=== PATIENT | male | born 1945 | race Caucasian/White ===

== ENCOUNTER 2019-12-17 21:25 | Inpatient (IN) | payer OTHER ==
[~2019-12-17] VITALS: Ht 170.2 cm; Wt 111.4 kg
[2019-12-17 19:30] VITALS: BP 130/86
[~2019-12-17 21:25] MED LIST: ASPIR 8181 MG PO; NITROGLYCERIN0.4 MG SUBLING
[2019-12-17 21:54] LABS: HEMATOCRIT 27.6 % (42.0-52.0); HEMOGLOBIN 8.8 gm/dL (14.0-18.0); MCH 30.3 pg (26.0-34.0); MCHC 31.9 g/dL (28.0-37.0); MCV 95.1 fL (80.0-100.0); PLATELET COUNT 385 thou/uL (150-400); RDW 16.7 % (10.5-14.5); WBC 10.7 thou/uL (4.0-11.0)
[2019-12-17 22:01] LABS: CREATININE 0.8 mg/dL (0.7-1.3); POTASSIUM 3.2 mmol/L (3.5-5.1)
[2019-12-17 22:06] LABS: INR 1.8; PROTIME 18.1 Seconds (9.3-11.4)
[2019-12-17] MEDS ORDERED: WELLBUTRIN 75 M75 M1 PO (22:12)
[2019-12-17] MEDS ORDERED: ARTIFICIAL TEAR1510 OPHTHALMIC (22:12)
[2019-12-17] MEDS ORDERED: REMEDY CALAZIM113 G2 TOP (22:13)
[2019-12-17] MEDS ORDERED: CARVEDILOL25 MG PO (22:14)
[2019-12-17] MEDS ORDERED: CARDIZEM SR 60M60 MG PO (22:16)
[2019-12-17] MEDS ORDERED: DULOXETINE HCL30 MG PO (22:17)
[2019-12-17] MEDS ORDERED: ZETIA10 MG PO (22:18)
[2019-12-17] MEDS ORDERED: LEVEMIR100 UNIT/1 SUBQ (22:19)
[2019-12-17] MEDS ORDERED: PREVACID30 MG PO (22:19)
[2019-12-17] MEDS ORDERED: POLYSACCHARIDE150 MG PO (22:20)
[2019-12-17] MEDS ORDERED: SUPER THERAVIT1 EACH PO (22:20)
[2019-12-17] MEDS ORDERED: EFFER-K 10 MEQ10 ME1 PO (22:21)
[2019-12-17] MEDS ORDERED: PRAVACHOL40 MG PO (22:22)
[2019-12-17] MEDS ORDERED: TRAZODONE HCL50 MG PO (22:22)
[2019-12-17] MEDS ORDERED: COUMADIN 2.5MG2.5 M1 PO (22:23)
[2019-12-17] MEDS ORDERED: COUMADIN 1MG TAB1 M1 PO (22:23)
[2019-12-17] MEDS ORDERED: VENTOLIN HFA INH8 GM INH (22:25)
[2019-12-17] MEDS ORDERED: NITROSTAT0.4 M1 SUBLING (22:27)
[2019-12-17] MEDS ORDERED: CHLORHEXADINE120 M1 TOP (22:28)
[2019-12-17 22:39] LABS: ABSOLUTE NEUTROPHILS 9.3 thou/uL (1.4-8.2)
[2019-12-17 22:40] LABS: ANISOCYTOSIS 1+; POLYCHROMASIA OCCASIONAL
[2019-12-18] VITALS (7 sets, daily range): BP systolic 89–132; BP diastolic 55–92
--- NOTE | 2019-12-18 09:30 | NUR ---
TUBE FEEDING RECOMMENDATIONS: 1) Continue care center TF regimen of Nepro at 45 ml/hr x 24 hrs/day. 2) Continue water flushes as ordered (150 ml q 4 hrs), adjusting as needed per provider discretion given current hyponatremia. 3) RECOMMEND adding Beneprotein modulars BID to increase protein given wounds. Suggest adding 2 packets/day with water flushes. 4) Recommend checking Mag and Phos lytes too as K+ currently low; replace.
--- NOTE | 2019-12-18 13:36 | NUR ---
CLINICAL UPDATE PROVIDED TO ELLIOTT FINK. FOLLOWING TO ASSIST WITH DC PLANNING ONCE MEDICALLY STABLE.
--- NOTE | 2019-12-18 14:46 | 2DMMODE ---
[facility] [place] [address] 2 D/M-MODE ECHOCARDIOGRAM Name: CHRIS SCOTT Room #: 352-P ADM IN M.R.#: [id number] Admission: 12/17/19 Attend Phys: Alfonso Goss MD Discharge: Date of : 47 Report #: [id number] THIS REPORT FOR: cc: Nathan Clarke MD, Christopher B. MD Lammoglia, Francisco J. MD ~ APPROVED REPORT Study performed: 12/18/2019 13:26:17 EXAM: Comprehensive 2D, Doppler, and color-flow Echocardiogram Patient Location: Bedside Room #: [facility] Status: routine BSA: 2.38 HR: 104 bpm BP: 94/68 mmHg Rhythm: Afib, PVC, tachy Other Information Study Quality: Fair/permanent tach Technically limited study due to obesity, lung interference w trach. Indications Short of breath, CHF. Hx: CABG and MV repair (August 2019) Hx: CHF, Afib, HTN, HLP, DM. Echo Enhancing Agent Indication: Endocardial border delineation Agent(s) / Amount(s) Used: Optison 5 cc 2D Dimensions RVDd: 39.44 mm IVSd: 11.44 (7-11mm) LVOT Diam: 21.21 (18-24mm) LVDd: 43.68 mm PWd: 10.56 (7-11mm) LVDs: 32.74 (25-40mm) Aortic Root: 36.84 mm Volumes Left Atrial Volume (Systole) Single Plane 4CH: 88.51 mL Single Plane 2CH: 124.16 mL [facility] [address] [place] [address] 2 D/M-MODE ECHOCARDIOGRAM Name: CHRIS SCOTT Room #: 352-P [facility] IN [facility]#: [id number] Admission: 12/17/19 Attend Phys: Lali Atwood Discharge: Date of : 47 Report #: [id number] ESV Index: 46.00 mL/m2 Aortic Valve AoV Peak Sy.: 2.04 m/s AO Peak Gr.: 16.72 mmHg LVOT Max P.91 mmHg AO Mean Gr.: 8.38 mmHg AO V2 Mean: 1.36 m/s LVOT Max V: 0.85 m/s AO V2 VTI: 39.07 cm FRANCINE Vmax: 1.47 cm2 Pulmonary Valve PV Peak Sy.: 0.84 m/s PV Peak Gr.: 2.80 mmHg Tricuspid Valve TR Peak Sy.: 2.43 m/s RAP Estimate: 15.00 mmHg TR Peak Gr.: 24.00 mmHg PA Pressure: 39.00 mmHg Left Ventricle The left ventricle is normal size. There is global hypokinesis of the left ventricle. Left ventricular systolic function is mildly decreased. LVEF is 45%. This study is not technically sufficient to allow evaluation of the LV diastolic function due to atrial fibrillation. Right Ventricle The right ventricle is normal size. The right ventricular systolic function is normal. Atria Left atrium is moderate to severely dilated. The right atrium size is normal. Aortic Valve Aortic valve is moderately calcified. Trace aortic regurgitation. There is mild valvular aortic stenosis. Calculated aortic valve area is 1.5 cm2 with maximum pressure gradient of 17 mmHg and mean pressure gradient of 8 mmHg. Mitral Valve Mitral valve repair (August 2019). Annulus is calcified. Decreased excursion of leaflets. Peak gradient of 18mmHg. Mean gradient of 8mmHg. Mild mitral regurgitation. Tricuspid Valve The tricuspid valve is normal in structure. Mild tricuspid [facility] [address] [place] [address] 2 D/M-MODE ECHOCARDIOGRAM Name: CHRIS SCOTT Room #: 352-P [facility] IN ..#: [id number] Admission: 12/17/19 Attend Phys: Lali Atwood Discharge: Date of : 47 Report #: [id number] regurgitation. Estimated PAP is 35-40mmHg. Pulmonic Valve Pulmonic valve is not well visualized. Great Vessels The aortic root is normal in size. Ascending aorta is not well visualized. IVC is dilated and collapses <50% with inspiration. Pericardium There is no pericardial effusion. <Conclusion> The left ventricle is normal size. LVEF is 45%. There is global hypokinesis of the left ventricle. Left atrium is moderate to severely dilated. Aortic valve is moderately calcified. Trace aortic regurgitation. There is mild valvular aortic stenosis. Calculated aortic valve area is 1.5 cm2 with maximum pressure gradient of 17 mmHg and mean pressure gradient of 8 mmHg. Mitral valve repair (August 2019). Annulus is calcified. Decreased excursion of leaflets. Peak gradient of 18mmHg. Mean gradient of 8mmHg. Mild mitral regurgitation. The tricuspid valve is normal in structure. Mild tricuspid regurgitation. Estimated PAP is 35-40mmHg. Pulmonic valve is not well visualized. There is no pericardial effusion. <ELECTRONICALLY SIGNED> By: Camilo Gorman MD 12/18/19 1445 1445 1445 Camilo Gorman MD /INF
--- NOTE | 2019-12-18 16:20 | EKG ---
[facility] [place] [address] ELECTROCARDIOGRAM REPORT Name: CHRIS SCOTT Room #: 352- ADM IN M.R.#: [id number] Admission: 12/17/19 Attend Phys: Alfonso Goss MD Discharge: Date of : 47 Report #: [id number] THIS REPORT FOR: cc: Nathan Clarke MD, Christopher B. MD Couchonnal, Luis F. 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: Samra GERMAN : 1945 Requested By: Natalie Cortes Order Number: [id number] MD: Siddharth Low Measurements Intervals Emerson Rate: 95 P: CA: QRS: 23 QRSD: 95 T: 58 QT: 407 QTc: 512 Interpretive Statements Atrial fibrillation Low voltage, extremity leads Nonspecific T abnormalities, lateral leads No previous ECG available for comparison Electronically Signed On 12-18-2019 16:19:54 NEW ORDER CLERK by Siddharth Low [email or web address] <ELECTRONICALLY SIGNED> By: Siddharth Low MD 12/18/19 1619 1424 1424 Siddharth Low MD /EPI
--- NOTE | 2019-12-18 19:53 | NUR ---
Assumed care approx. 0700 this AM. Pt able to respond to medical questions when asked by doctors today, but noted to be very drowsy. Pt remains on vent/trach. Chest tube intact-chest tube placed to suction per verbal order from Dr. Pope. Minimal serous drainage from chest tube. Midline noted to not draw blood-IV team tried to fix the line with no success. Right upper arm peripheral IV was placed per IV team. Family updated at bedside. Family educated on isolation precautions. No acute changes noted. Pt hasn't progressed toward goals yet as medical problems are still to be resolved.
[2019-12-19] VITALS (7 sets, daily range): BP systolic 83–125; BP diastolic 62–110
[2019-12-19 04:00] LABS: ANION GAP < 0 mmol/L (7-16); BUN 31 mg/dL (7-18); CALCIUM 7.9 mg/dL (8.5-10.1); CHLORIDE 90 mmol/L (98-107); CO2 42 mmol/L (21-32); CREATININE 0.9 mg/dL (0.7-1.3); GLUCOSE 120 mg/dL (74-106); POTASSIUM 3.3 mmol/L (3.5-5.1); SODIUM 131 mmol/L (136-145)
[2019-12-19 04:28] LABS: INR 1.6; PROTIME 16.1 Seconds (9.3-11.4)
--- NOTE | 2019-12-19 08:17 | NUR ---
ASSUMED CARE AT 1900. PT TOLERATING VENT, MINIMAL NEED FOR SUCTION OVERNIGHT, LUNGS DIMINISHED R>L. MODERATE DARK, TARRY STOOL IN EVENING. ONLY ABOUT 10 ML OUT OF CHEST TUBE OVERNIGHT. PT BECAME NAUSEATED AFTER A WATER FLUSH WITH MEDICATIONS, ONLY GAVE TWO OVERNIGHT TO REDUCE DISCOMFORT. HELD TUBE FEEDING AT 0500 FOR THORACENTESIS TODAY. SOFT BP'S OVERNIGHT, HELD MIDNIGHT CARDIZEM, BUT HR GRADUALLY HIGHER OVERNIGHT ABOUT 120; GAVE 0600 DOSE WHICH HELPED HR. NO OTHER CONCERNS, WILL CONTINUE TO MONITOR.
--- NOTE | 2019-12-19 11:42 | H ---
[facility] [place] [address] HISTORY AND PHYSICAL Name: CHRIS SCOTT Room #: 352-P ADM IN M.R.#: [id number] Admission: 12/17/19 Attend Phys: Alfonso Goss MD Discharge: Date of : 47 Report #: [id number] THIS REPORT FOR: //name// CC: Nathan Goss DATE OF SERVICE: 12/18/2019 CHIEF COMPLAINT: Shortness of breath. HISTORY OF PRESENT ILLNESS: The patient is a 74-year-old gentleman admitted from [facility] facility for evaluation of a chronic right pleural effusion. His history is quite complicated, but began in early 08/2019 when he underwent multivessel cardiac bypass surgery and mitral valve repair at the [facility] in [place], [place]. Postoperatively, he had complications with respiratory failure, pulmonary edema, congestive heart failure and renal failure. He required prolonged mechanical ventilation and ultimately had a tracheostomy tube placed and PEG tube for nutritional and medication access. He required hemodialysis for a period of time and also had complications of his global weakness, thought possibly related to a central cord syndrome or critical illness myopathy. He medically stabilized and then transferred to [facility] in [facility] where he stayed for quite some length of time. He was unable to wean from the ventilator and had complications. He may have had a brief hospital stay again and then transferred to [facility] facility on 11/14/2019. At the time of his admission to [facility], he had bilateral chest tubes and subsequently a left chest tube has been removed; however, he has had a chronic right pleural effusion that has been recurrent and persistently draining approximately 500 to over a 1000 mL of fluid daily. He has been attempted with diuretics without much improvement. This recurrent effusion and chest tube has prevented him from weaning from the ventilator. For a brief period of time, he was weaned to trach shield, but then developed respiratory distress again and now has been back on the ventilator for over a week. He has been trying CPAP trials for brief periods, but his condition has plateaued. He has been admitted for reevaluation of the chronic right pleural effusion to see if there is a definitive treatment. PAST MEDICAL HISTORY: Coronary artery disease; mitral valve disease with recent mitral valve repair; chronic Coumadin therapy, I believe he has had atrial fibrillation. PAST SURGICAL HISTORY: As above. FAMILY HISTORY: Unknown. SOCIAL HISTORY: Unknown. [address] [address] HISTORY AND PHYSICAL Name: CHRIS SCOTT Room #: 352-P [facility] IN M.R.#: [id number] Admission: 12/17/19 Attend Phys: Alfonso Goss MD Discharge: Date of : 47 Report #: [id number] ALLERGIES: LIPITOR. MEDICATIONS: Vitamins, Levemir 5 units, Protonix, potassium, trazodone, duloxetine, bupropion, aspirin, diltiazem, carvedilol, pravastatin, Zetia, Coumadin, iron, Ventolin. REVIEW OF SYSTEMS: He is asleep, but arousable. Denies any chest pain, shortness of breath or abdominal pain, just complains of being tired. OBJECTIVE: VITAL SIGNS: Temperature 36.9, pulse 103, respirations 18, blood pressure 94/68, O2 sat 99% on the ventilator. GENERAL: He awakens easily. He is in no distress. HEAD AND NECK: Unremarkable. Trach in place. LUNGS: Clear anteriorly. HEART: Regular, no murmur. ABDOMEN: Protuberant, soft, normoactive bowel sounds with PEG tube. EXTREMITIES: There is 2+ edema throughout. NEUROLOGIC: He is moving his upper extremities. Strength grossly about 2-3/5. Some movement in his toes. LABORATORY DATA: Hemoglobin is 8.8. Sodium 128, potassium 3.2. Chest x-ray suggests congestive heart failure and moderate cardiomegaly with basilar infiltrates or atelectasis. ASSESSMENT: 1. Chronic right pleural effusion. 2. Congestive heart failure. 3. Chronic hypoxic respiratory failure. 4. Ventilator dependence. 5. Tracheostomy dependent. 6. Coronary artery disease with recent cardiac bypass 08/2019. 7. Mitral valve disease with recent mitral valve repair. 8. Critical illness myopathy. 9. Anemia of chronic disease. 10. Atrial fibrillation. 11. Chronic anticoagulation. PLAN: I will continue his medications and transfer. Echocardiogram has been ordered. I have asked Dr. Glover and Dr. Quinones to see him, may need the Cardiology service to reevaluate as well. We will await additional [place] [address] HISTORY AND PHYSICAL Name: CHRIS SCOTT Room #: 352-P [facility] IN M.R.#: [id number] Admission: 12/17/19 Attend Phys: Alfonso Goss MD Discharge: Date of : 47 Report #: [id number] try to get a better handle on the effusion and how it may be managed permanently. <ELECTRONICALLY SIGNED> By: Alfonso Goss MD 12/19/19 1142 1154 1209 Alfonso Goss MD /nt
--- NOTE | 2019-12-19 12:38 | HC ---
[facility] [place] [address] CONSULTATION Name: CHRIS SCOTT Room #: 352-P ADM IN M.R.#: [id number] Admission: 12/17/19 Attend Phys: Alfonso Goss MD Discharge: Date of : 46 Report #: [id number] THIS REPORT FOR: cc: Nathan Clarke MD,Nathan Clarke,Taqueria Buckner MD ~ CC: Nathan Goss DATE OF SERVICE: 12/18/2019 INFECTIOUS DISEASE CONSULTATION REASON FOR CONSULTATION: I was asked to evaluate concerning possible right chest infection. HISTORY OF PRESENT ILLNESS: The patient was a 74-year-old who initially was treated at the [facility] in [place], [place] in first week of August for coronary bypass grafting and mitral valve repair with annuloplasty ring. Postoperatively, failed a wean from the ventilator. He had a prolonged time in intraaortic balloon pump. Developed acute kidney injury and required hemodialysis for a period of time. This has subsequently resolved. He has a PEG tube placed and is undergoing tube feeding nutrition. He developed quadriparesis, unclear whether this was central cord weakness versus critical care polyneuropathy. He has spent time at [facility], but 2failed to wean from the ventilator. Then, he was transferred to [facility] for further care. He has had Pseudomonas lower respiratory tract infection. Initially, had bilateral chest tubes. Now, has a right chest tube with minimal output. He has failed to wean from the ventilator. Transfers now for further evaluation of his right chest. Over the last week, he has had low-grade fever. Placed on Levaquin for 3 days for Pseudomonas identified from his urinalysis and urine culture. He has been tolerating his tube feeds. He has had no diarrhea. He remains alert and cooperative. He had a small amount of tracheal secretions. There has been no rash or decubiti. A 14-point review of systems was negative other than what has been described above. He does have a left upper extremity PEG tube and an indwelling Garcia catheter. Right chest tube is to suction and only had 10 mL out. PAST MEDICAL HISTORY: Hypertension, coronary artery disease, hyperlipidemia, obesity, spondylolisthesis, diverticulosis, major depression, gastroesophageal reflux, PTSD, adrenal adenoma, BPH, tobacco abuse, diabetes, hypernatremia and mitral valve disease. FAMILY HISTORY: No tuberculosis. [address] [address] CONSULTATION Name: CHRIS SCOTT Room #: 352-P [facility] IN .R.#: [id number] Admission: 12/17/19 Attend Phys: Alfonso Goss MD Discharge: Date of : 46 Report #: [id number] SOCIAL HISTORY: No current alcohol or tobacco use. ALLERGIES: ATORVASTATIN. MEDICATIONS: As noted on his JAN, now off antibiotics. PHYSICAL EXAMINATION: VITAL SIGNS: He is afebrile and hemodynamically stable. GENERAL: He is alert, cooperative, in no acute distress. He was on AC mode. Tracheostomy was without surrounding erythema. NECK: Supple. No rashes or decubiti. No palpable adenopathy. HEENT: Eyes, without scleral icterus. Mouth without mucositis. CHEST: Decreased breath sounds in the bases bilaterally. Right chest tube in the anterior axillary line. HEART: Regular with crisp valve sounds. ABDOMEN: Obese, soft, PEG site was unremarkable with no drainage or erythema. No other mass or hepatosplenomegaly. GENITOURINARY: External genitalia without lesion or mass, has an indwelling Garcia catheter. RECTAL: Not performed. BACK: Nontender. There is no CVA tenderness. NEUROLOGIC: Cranial nerves were intact. He had quadriparesis, but was able to move his toes minimally in his upper extremities. Mood was sedate, but cooperative. LABORATORY STUDIES: Reviewed. Microbiology from [facility] was reviewed as well as from this hospitalization. Chest x-ray reviewed. IMPRESSION: 1. A 74-year-old who is 4 months post-coronary bypass grafting and mitral valve repair, who has failed to wean from the ventilator. Has ongoing issues with congestive heart failure and pleural effusion. The current chest tube is not functioning adequately. 2. 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 3. Respiratory failure. 4. Congestive heart failure. 5. Coronary artery disease. 6. Critical illness myopathy. 7. Anemia of chronic disease. 8. Atrial fibrillation. 9. History of tobacco use. RECOMMENDATIONS: We will continue to observe off antibiotics at this point. His white count is normal. He is afebrile. We will wait to see what the [address] [address] CONSULTATION Name: CHRIS SCOTT Room #: 352-P ADM IN M.R.#: [id number] Admission: 12/17/19 Attend Phys: Alfonso Goss MD Discharge: Date of : 46 Report #: [id number] pleural fluid on the right chest reveals. We will monitor for evidence of recurring fever. Cardiothoracic Surgery to evaluate. <ELECTRONICALLY SIGNED> By: Taqueria Clarke MD 12/19/19 1238 0943 1036 Taqueria Clarke MD /nt
--- NOTE | 2019-12-19 14:31 | HC ---
[facility] [place] [address] CONSULTATION Name: CHRIS SCOTT Room #: 352-P ADM IN M.R.#: [id number] Admission: 12/17/19 Attend Phys: Alfonso Goss MD Discharge: Date of : 46 Report #: [id number] THIS REPORT FOR: cc: Nathan Clarke MD,Bayron Hung MD, MD ~ CC: Nathan Goss DATE OF SERVICE: 12/18/2019 We were asked to see the patient as a consultation. HISTORY OF PRESENT ILLNESS: The patient is a 74-year-old sent from [facility] for persistent right pleural effusion. The patient originally had coronary bypass surgery and mitral valve repair of some sort at the [facility]. He had a cardiac collapse after surgery and required long-term ventilation. When the patient was finally strong enough, he was transferred to [facility] in [place]. At the beginning of November, there was some concern about infection and the patient was transferred to [facility] from [facility]. The patient has been maintained on a ventilator through a tracheostomy. The patient had been making progress with advancement to [facility], but he has had a recrudescence of pulmonary dysfunction requiring ventilation once again and this is in part related to the effusion on the right side. Catheters were placed in both pleural spaces, but the catheters on the left side seemed to have been removed and the catheters on the right side remained. Current chest x-ray shows persistent right pleural effusion despite catheter placement. The patient was transferred here from [facility] for further evaluation, both of the cause and assessment for treatment of this. PAST HISTORY: Significant in the fact that the patient has "prediabetes." He is also treated for hypertension and cholesterol. The patient was a smoker up until the time of surgery. The patient's son states that he originally had his bypass surgery for shortness of breath at low levels of exertion. There was also angina, but the shortness of breath appeared to be the principal symptom. No word from the son about whether there was a good assessment of ventricular function prior to surgery. ALLERGIES: ATORVASTATIN. MEDICATIONS: Bupropion, Cardizem, carvedilol, vitamin D, Desyrel, duloxetine, [facility] [address] [place] [address] CONSULTATION Name: CHRIS SCOTT Room #: 352-P [facility] IN [facility].#: [id number] Admission: 12/17/19 Attend Phys: Alfonso Goss MD Discharge: Date of : 47 Report #: [id number] ezetimibe, insulin, iron, vitamins. SOCIAL HISTORY: As mentioned, previous smoker. The patient lives in [place]. REVIEW OF SYSTEMS: Obtained from the son as the patient is intubated prior to surgery. The patient had a largely negative review save for the cardiopulmonary subsystem. PHYSICAL EXAMINATION: GENERAL: The patient is lying in bed with trach in place, seems awake and alert and comfortable. VITAL SIGNS: Temperature 36.7, heart rate 104, blood pressure 132/79, O2 sat 98% on 40%. HEENT: No scleral icterus, no arcus. Pupils are round, equal, responsive. NECK: No mass, no bruit. Trachea is in place. CHEST: Clear anteriorly to auscultation, somewhat decreased breath sounds on the right. HEART: Somewhat decreased heart tones. Heart rate is irregular. I hear no murmur. Chest incision is well healed and sternum seems to be stable. There appears to be no evidence for infection. ABDOMEN: Soft, centripetal obesity. EXTREMITIES: Edematous with dependent edema in the lower extremities. No clubbing or cyanosis. NEUROLOGIC: Seems to have full motion, but is weak, particularly in the lower extremities. PSYCHIATRIC: Hard to assess, but the patient appears to be alert and responds as he can to question, not sure whether the patient is oriented or not. ASSESSMENT AND PLAN: The patient has persistent right pleural effusion with undrained fluid based on the appearance on the chest x-ray. I discussed the case with the PA at [facility] and had suggested the patient should get assessment of ventricular function, such as a cardiac echo and a CAT scan. With this information, we can best decide how to treat the pleural effusion. At this point, we have no further plans other than to wait for the diagnostic studies to amass. It is a privilege to participate in this challenging patient's care. Thank you for the consult. <ELECTRONICALLY SIGNED> By: Bayron Quinones MD 12/19/19 1431 1124 1230 Bayron Quinones MD /nt
--- NOTE | 2019-12-19 15:16 | NUR ---
INITIAL ASSESSMENT: Received consult. JOSE ALFREDO reviewed chart and spoke with nursing and attending physician. Pt was admitted from [facility] due to recurrent right pleural effusion. Pt to have CT of chest and thoracentesis today. Pt currently off the unit. JOSE ALFREDO spoke with pt's son, Ever, via phone to obtain info for assessment. Pt had cardiac bypass surgery at the [facility] in Aug 2019. Pt was transferred to [facility] in [place] and then transferred to [facility] per family request. Pt continues vent weaning trials at [facility]. Pt's primary [place] is the [place]. Will need authorization from [place] when pt is ready to return to [facility]. No weekend discharge planned. Pt's son is agreeable with plan for pt to return to [facility] when medically stable. JOSE ALFREDO provided update to [facility] liaison, Bayron. JOSE ALFREDO is following to assist as needed with discharge planning.
--- NOTE | 2019-12-19 15:32 | NUR ---
ASSUMED CARE OF PT AT 0700. PT AOX2 IN NO APPARENT DISTRESS. CT SHOWING NOT ENOUGH FLUID FOR THORACENTESIS. NEEDING FREQUENT SUCTIONING. MINIMAL OUTPUT IN CHEST TUBE. GOOD URINE OUTPUT. DIGOXIN/LASIX INITIATED BY CARDIOLOGY. VITALS STABLE. WILL CONT TO MONITOR.
--- NOTE | 2019-12-19 18:07 | HC ---
[facility] [place] [address] CONSULTATION Name: CHRIS SCOTT Room #: 352-P ADM IN M.R.#: [id number] Admission: 12/17/19 Attend Phys: Alfonso Goss MD Discharge: Date of : 47 Report #: [id number] THIS REPORT FOR: cc: Nathan Clarke MD,Juan Crain MD, MD ~ CC: Nathan Goss DATE OF SERVICE: 12/18/2019 CHIEF COMPLAINT: Left heel ulcer and gluteal ulcerations. HISTORY OF PRESENT ILLNESS: This is a 74-year-old male patient who has a history of coronary artery disease, status post coronary artery bypass graft in 08/2018. He has had ongoing respiratory failure, requiring ventilator management, was noted to have a pleural effusion that seems to be interfering with weaning from the ventilator. He has been admitted for a cardiopulmonary evaluation. I have been asked to see him with regard to wound care. The patient is awake and alert, smiling. He is not able to specifically answer questions, but denies any significant pain. PAST MEDICAL HISTORY: Prior history of mitral valve repair, critical illness myopathy. He has chronic respiratory failure, requiring tracheostomy and ventilatory support. Coronary artery disease, recurrent right pleural effusion. He has had a PEG tube placed. He has required hemodialysis and has had ongoing significant weakness. CURRENT MEDICATIONS: Include bupropion, carvedilol, diltiazem, duloxetine, Zetia, insulin, Prevacid, potassium bicarbonate, trazodone, Coumadin, Ventolin, chlorhexidine and aspirin. ALLERGIES: ATORVASTATIN. SOCIAL HISTORY: Negative for current alcohol or tobacco use. FAMILY HISTORY: Unknown. REVIEW OF SYSTEMS: Unable to be obtained due to the fact that the patient is on a ventilator and unable to answer questions. Any pertinent positives in review of systems are covered in the history of present illness above. PHYSICAL EXAMINATION: VITAL SIGNS: At this time include temperature 37.0, pulse 89, respiratory rate 14, blood pressure 120/92. GENERAL: This is a chronically ill-appearing male patient who appears to be in [address] [address] CONSULTATION Name: CHRIS SCOTT Room #: 352-P [facility] IN M.R.#: [id number] Admission: 12/17/19 Attend Phys: Alfonso Goss MD Discharge: Date of : 47 Report #: [id number] minimal distress. HEENT: Head normocephalic. Nose and throat are clear. NECK: Demonstrates tracheostomy. LUNGS: Clear. HEART: Regular rhythm. ABDOMEN: Soft, nontender. PEG tube noted. EXTREMITIES: Examination of the sacral gluteal region demonstrates scattered superficial stage 3 pressure ulcerations to the sacral gluteal region bilaterally. None of these are infected. No deep structures were exposed. Lower extremities demonstrate 3+ edema bilaterally. He has a blister on the left heel. It is not open at present, although it is a little bit tense and the area could tear or rupture. NEUROLOGIC: The patient appears to be moving all 4 extremities spontaneously. LABORATORY DATA: Include white blood cell count 10.7, hemoglobin 8.8. Sodium 128, potassium 3.2, chloride 87, CO2 of 41, BUN 28, creatinine 0.8, glucose 106, calcium is 8.0. CLINICAL IMPRESSION: 1. Stage 3 pressure ulcerations to the sacral gluteal region. 2. What appears to be a blister; therefore, stage 2 pressure ulceration to the left heel. 3. Respiratory failure, requiring mechanical ventilatory support. 4. Persistent and recurring pleural effusion. RECOMMENDATIONS: At this point, I will recommend a zinc oxide based moisture barrier cream to the sacral gluteal region to be applied b.i.d. He will need a low air loss mattress, every 2 hour turning and positioning. Will recommend an ABD to the left heel with Kerlix. We will review his ejection fraction to determine whether he would be able to handle some compression of the lower extremities to control edema. He will need ongoing aggressive nutritional support to maximize wound healing. I do appreciate being asked to see him in consultation. <ELECTRONICALLY SIGNED> By: Juan Chowdhury MD 12/19/19 1807 [id number] Juan Chowdhury MD /nt
[2019-12-20 00:54] VITALS: BP 108/53
[2019-12-20 04:47] VITALS: BP 118/68
[2019-12-20 07:19] VITALS: BP 112/57
--- NOTE | 2019-12-20 08:42 | NUR ---
ASSUMED CARE AT 1900. PT NOTED TO HAVE WHEEZY LUNG SOUNDS; WHEN LISTENING IN THE BASES WHILE TURNED TO HIS SIDE, PT NOTED TO HAVE LOUD CRACKLES IN BOTH BASES. HAD A LARGE, SOFT, BLACK STOOL. NO RESIDUAL FROM GTUBE. HR UNDER 100 ALL NIGHT, TYPICALLY IN THE 80'S. NO OTHER CONCERNS, SHIFT REPORT GIVEN AT 0700.
[2019-12-20 10:44] LABS: INR 1.7; PROTIME 17.3 Seconds (9.3-11.4)
[2019-12-20 11:06] LABS: CALCIUM 7.8 mg/dL (8.5-10.1); CREATININE 0.9 mg/dL (0.7-1.3); POTASSIUM 3.9 mmol/L (3.5-5.1)
[2019-12-20 11:48] VITALS: BP 97/38
[2019-12-20 15:32] VITALS: BP 119/58
--- NOTE | 2019-12-20 16:01 | NUR ---
Assumed care approx. 0700 this AM. Pt more alert and awake this afternoon asking questions about his plan of care. Afib rate remains controlled. IV lasix changed from 40 mg to 80 mg. Dressing change completed on left heel. Zguard added to sacrum. Pt noted to have a moderate, dark green BM today. No output thus far from chest tube. Updated son on the phone this afternoon. Will continue to monitor. Pt slightly progressing toward goals.
[2019-12-20 19:30] VITALS: BP 119/57
[2019-12-21 07:26] VITALS: BP 118/70
[2019-12-21 11:22] VITALS: BP 109/60
[2019-12-21 13:31] LABS: ANION GAP < 0 mmol/L (7-16); BUN 28 mg/dL (7-18); CALCIUM 8.1 mg/dL (8.5-10.1); CHLORIDE 92 mmol/L (98-107); CO2 43 mmol/L (21-32); CREATININE 0.9 mg/dL (0.7-1.3); GLUCOSE 117 mg/dL (74-106); SODIUM 133 mmol/L (136-145)
[2019-12-21 15:43] VITALS: BP 135/92
--- NOTE | 2019-12-21 17:21 | NUR ---
ASSUMED CARE OF PT AT 0700. PT AOX2 IN NO ACUTE DISTRESS. SUCTIONED PRN. MINIMAL OUTPUT IN CHEST TUBE - NOW ON WATER SEAL. TOLERATING TUBE FEED AT GOAL RATE W/O RESIDUAL. TURNED PRN. SON AND OTHER FAMILY AT BEDSIDE. NO OTHER REMARKABLE CHANGES TO REPORT.
[2019-12-21 22:06] VITALS: BP 99/60
[2019-12-22 04:43] VITALS: BP 97/62
[2019-12-22 05:39] LABS: HEMATOCRIT 25.7 % (42.0-52.0); HEMOGLOBIN 8.3 gm/dL (14.0-18.0); MCHC 32.3 g/dL (28.0-37.0); MCV 95.9 fL (80.0-100.0); RBC 2.68 mil/uL (4.50-6.00); WBC 10.7 thou/uL (4.0-11.0)
[2019-12-22 05:59] LABS: INR 1.6; PROTIME 16.4 Seconds (9.3-11.4)
[2019-12-22 06:14] LABS: ANION GAP < 0 mmol/L (7-16); BUN 28 mg/dL (7-18); CALCIUM 8.2 mg/dL (8.5-10.1); CHLORIDE 93 mmol/L (98-107); CO2 43 mmol/L (21-32); GLUCOSE 113 mg/dL (74-106); POTASSIUM 3.9 mmol/L (3.5-5.1); SODIUM 134 mmol/L (136-145)
--- NOTE | 2019-12-22 06:29 | NUR ---
ISOLATION PRECAUTIONS IN PLACE, COLLECTED MRSA PCR DUE TO ONE NOT BEING COLLECTED ON ADMISSION AND NO WAY TO VERIFY IF PT HAS MRSA LESS STATEMENT FROM PT SON. Q2 TURN AND LOW LOSS AIR MATTRESS IN PLACE. PT HAS EDEMA BLLE+3 AND BLUE+2. OVERNIGHT PT HAD 1X BOWEL MOVEMENT. HELD 0600 DILTIAZEM DUE TO SBP LESS THAN 100. WILL PASS THIS INFORMATION ON TO AM NURSE. VSS AND BLOOD SUGARS HAVE BEEN IN LOW 110'S.
[2019-12-22 08:41] VITALS: BP 97/70
[2019-12-22 12:00] VITALS: BP 113/64
--- NOTE | 2019-12-22 14:27 | NUR ---
Pt care taken over at 0700. MRSA PCR came back negative, isolation discontinue. Pt alert and oriented X3. Pt on vent, 40% oxygen. Pt assessment and vitals completed. 0800 digoxin and coreg held due to low BP, 97/56. Bed alarm on, call light and table in reach. Will continue to monitor.
--- NOTE | 2019-12-22 15:34 | NUR ---
REC increasing protein intake due to wounds. REC adding 2 packets Beneprotein daily with scheduled water flushes. This will increase protein from 88 g/day to 100 g/day.
[2019-12-22 15:41] VITALS: BP 134/79
--- NOTE | 2019-12-22 15:49 | NUR ---
PATIENT ADMITTED FROM [facility]. PLAN IS FOR PATIENT TO RETURN TO [facility] ONCE MEDICALLY READY. PATIENT CLINICALS PROVIDED TO [facility] LIAISON. DISCHARGE DATE HAS NOT BEEN ESTABLISHED AT THIS TIME. [facility] AWARE. FOLLOWING.
--- NOTE | 2019-12-22 16:23 | NUR ---
SW reviewed chart and spoke with nursing. Pt is not ready for discharge back to [facility] yet. JOSE ALFREDO updated [facility] liaison. [facility] will need to get insurance authorization from the [place] for pt to return. JOSE ALFREDO is following to assist as needed with discharge planning.
[2019-12-22 19:24] VITALS: BP 106/56
[2019-12-22 23:50] VITALS: BP 114/59
--- NOTE | 2019-12-23 04:42 | NUR ---
ASSUMED PT CARE AT 1900. PT IS ALERT AND ORIENTED. NO SIGN OF DISTRESS NOTED IN PT. TRACHEOSTOMY IN PLACE, MUÑOZ, CHEST-TUBE AND PEG TUBE IN PLACE WELL. PT IS STABLE. ASSESSMENT COMPLETED AND DOCUMENTED. DENIES ANY PAIN. PT REPOSITONED. SCHEDULED MEDS ADMINISTERED TO PT VIA NGT. VITAL SIGNS STABLE. CONTINUE TO MONITOR PT. DENIES ANY FURTHER NEEDS AT THIS TIME.
[2019-12-23 04:51] VITALS: BP 93/75
[2019-12-23 07:42] VITALS: BP 109/68
[2019-12-23 11:45] VITALS: BP 109/63
[2019-12-23 15:59] VITALS: BP 114/81
--- NOTE | 2019-12-23 16:01 | NUR ---
JOSE ALFREDO reviewed chart and spoke with nursing. Pt has chest tube in place. SW updated [facility] liaison. Will fax clinical updates to [facility] tomorrow. JOSE ALFREDO is following to assist as needed with discharge planning.
--- NOTE | 2019-12-23 19:44 | NUR ---
1666 Dr JOHNSON paged in regards to patients chest tube coming out. Message left with the answering service. 5120 Spoke with informed him that we had been turning the patient earlier and the chest tube was laying on the floor. All components intact including the sutures used to hold it in place. Vaseline gauze drsg applied over insertion site. Ordered recieved at this time for a CT of the chest without contrast. CT and RT were both notified to coordinate this test.
[2019-12-23 19:46] VITALS: BP 113/70
--- NOTE | 2019-12-23 23:04 | NUR ---
PT RESTING IN BED TRACH AND VENT INTACT. LUNGS WITH WHEEZES. HR REMAINS IRREG. PEG TFEEDING INTACT. MUÑOZ TO DD. PT SMILING MOUTHING WORDS FOR COMMUNICATIONS. 4 CHILDREN VISITED. PT OBESE ASSISTS WITH REPOSITIONING, BUT DOES DECLINE TURNS INTERMITTENTLY. SCROTUM EDEMA AND BLE EDEMA +3 AND LEG WRAPS INTACT. PT COUGHS WITH STRENGTH. BED ALARM ON.
[2019-12-24 03:12] VITALS: BP 109/68
[2019-12-24 06:44] LABS: HEMATOCRIT 26.8 % (42.0-52.0); HEMOGLOBIN 8.5 gm/dL (14.0-18.0); MCH 30.1 pg (26.0-34.0); MCHC 31.6 g/dL (28.0-37.0); MCV 95.2 fL (80.0-100.0); RBC 2.82 mil/uL (4.50-6.00); RDW 16.7 % (10.5-14.5); WBC 9.8 thou/uL (4.0-11.0)
[2019-12-24 06:49] LABS: APTT 40.8 Seconds (24.5-32.8); INR 1.5
[2019-12-24 07:17] LABS: CALCIUM 8.9 mg/dL (8.5-10.1); DIGOXIN 1.4 ng/mL (0.9-2.0); MAGNESIUM 1.9 mg/dL (1.8-2.4); POTASSIUM 4.5 mmol/L (3.5-5.1)
--- NOTE | 2019-12-24 07:57 | NUR ---
0700 recieved report from Estela MONTALVO patient resting no complaints or concerns at this time. 0758 Assessment done patient awake in good spirits. Garcia cath draining clear yellow urine. Peg tube feeding running at 45cc/hr drsg changed around peg tube RT had just left the room following a RT TX.
[2019-12-24 08:26] VITALS: BP 101/71
[2019-12-24 11:06] VITALS: BP 117/66
--- NOTE | 2019-12-24 15:07 | NUR ---
Patient has rested quietly all evening had a lg bm otherwise uneventful day.His Xerolto will be held in anticipation for the chest tube placement in the am along with tube feeding to be held at 0000. Consent is on the chart to be signed in the am.
--- NOTE | 2019-12-24 15:18 | NUR ---
patient has been much better today, more alert his communication has been slightly clearer and he is making more of an effort to communicate. He is still confused and speech is garbled with expressive aphasia. Family has been at bedside this afternoon.
[2019-12-24 15:41] VITALS: BP 118/82
[2019-12-24 20:23] VITALS: BP 116/70
--- NOTE | 2019-12-24 21:49 | NUR ---
PT RESTING IN BED. TRACH AND VENT INTACT. PEG TUBE INTACT, MUÑOZ TO DD. PT MOUTHING WORDS FOR COMMUNICATIONS. EDEMA BUE AND BLE, SCROTUM REMAINS. LUNGS COARSE. NPO P MN FOR CHEST TUBE PLACEMENT IN AM.ISOLATION FOR PSEUDOMONAS. PT ASSISTS WITH REPOSITIONING BUT DOES DECLINE AT TIMES. MIDLINE INTACT.
[2019-12-25] VITALS (10 sets, daily range): BP systolic 102–139; BP diastolic 57–90
--- NOTE | 2019-12-25 00:13 | NUR ---
TFEEDING STOPPED FOR PROCEDURE IN AM.
[2019-12-25 12:07] LABS: CALCIUM 8.6 mg/dL (8.5-10.1); CREATININE 0.9 mg/dL (0.7-1.3); POTASSIUM 4.2 mmol/L (3.5-5.1)
--- NOTE | 2019-12-25 16:38 | NUR ---
JOSE ALFREDO reviewed chart and spoke with nursing. Pt had chest tube placed in IR today. JOSE ALFREDO updated [facility] liaison. Plan is for pt to return to [facility] when medically stable. [facility] will need to get insurance authorization for LTAC. JOSE ALFREDO is following to assist as needed with discharge planning.
--- NOTE | 2019-12-25 18:07 | NUR ---
PATIENT WENT TO IR AT 1130 HAD SHALONDA CHEST TUBE INSERTED. NO AIR LEEKING NOTED. TOLERATED ON VENT. SUCTION NEED. NO RESIDUAL NOTED FROM PEG TUBE. SLOWLY TOWARDS POC GOALS.
--- NOTE | 2019-12-26 00:08 | NUR ---
PT RESTING IN BED. VENT TRACH INTACT, PEG TUBE INTACT, TWO CHEST TUBES INTACT, MUÑOZ TO DD. EDEMA BUE AND BLE AND SCROTUM. PT REMAINS OBESE. PT MOUTHING WORDS FOR HIS NEEDS. SLIV IN L ARM. VANCOMYCIN ANTIBIOTIC STARTED TONIGHT. LUNGS REMAIN COARSE. LOOSE COUGH.
[2019-12-26 04:05] LABS: CALCIUM 8.1 mg/dL (8.5-10.1); POTASSIUM 4.2 mmol/L (3.5-5.1)
[2019-12-26 04:37] VITALS: BP 115/68
[2019-12-26 07:39] VITALS: BP 119/65
--- NOTE | 2019-12-26 08:09 | NUR ---
TF RECS 1) Continue Nepro TF at 45 ml/hr goal rate. 2) If pt desires times off pump, recommend increasing TF rate for breaks. At 60 ml/hr x 18 hrs/day, pt off pump for 6 hrs a day (ex: off 10a-4p) At 70 ml/hr x 16 hrs/day, pt off pump for 8 hrs a day (ex: off 8a-4p). 3) As pt continues to tolerate Nepro extremely well, would not need to change formula as pt will discharge to facility. No more mention of renal failure, so if pt ever to go home on feeds & needing non-specialized formula, consider Osmolite 1.5 (pt used to low fiber) as this still limits volume for CHF. On Osmolite 1.5, pt would need rate of 55 ml/hr x 24hrs to meet same needs.
--- NOTE | 2019-12-26 12:51 | NUR ---
WOUND CONSULT; THE LE'S BILATERALLY WERE ASSESSED TODAY MILD EDEMA NOTED. THE PATIENT HAS A BLISTER TO THE LEFT HEEL AND IS WEARING PRAFO BOOTS. THE SKIN IS DRY. THE BLISTER IS COVERED WIOTH A BOARDER FOAM. TUBIGRIPS WERE APPLIED PER DR MICHELL ALSTON. RECOMMEDNATION; 1-APPLY TUBIGRIPS STOCKINGS BILATERALLY. 2-REMOVE STOCKINGS DAILY AND ASSESS SKIN THEN REAPPLY DISCUSSED WITH RN
[2019-12-26 15:36] VITALS: BP 117/65
--- NOTE | 2019-12-26 15:46 | NUR ---
JOSE ALFREDO reviewed chart and spoke with nursing and attending physician. Pt is progressing towards goals for discharge back to [facility]. JOSE ALFREDO faxed clinical updated to [facility] for review, and notified liaison. Will need insurance authorization for pt to return to LTAC. JOSE ALFREDO spoke with pt's son, Ever, via phone to provide update. Pt's son states that he would like an update from the physician regarding plan of care. Pt's son is agreeable with pt returning to [facility] when medically stable. JOSE ALFREDO notified attending physician of pt's son request to speak with him. JOSE ALFREDO is following to assist as needed with discharge planning.
--- NOTE | 2019-12-26 18:40 | NUR ---
ASSUMED PATIENT CARE AT 0700. A/O X4. TOLERATED ON VENT. RIGHT CHEST TUBE FAS 500ML OUT AND KEFT CHEST TUBE HAS 40ML OUT. PROGRESSING TOWARDS POC GOALS.
[2019-12-26 19:36] VITALS: BP 116/57
--- NOTE | 2019-12-26 22:52 | NUR ---
PT REMAINS RESTING IN BED WATCHING TV. PT MOUTHS WORDS FOR NEEDS. PT ASSISTS WITH REPOSITIONING. PT SMILING. OBESE, MUÑOZ TO DD, PEG TUBE WITH FEEDING INTACT. TRACH/VENT INTACT. PT NOT PULLING ON VENT TUBES OR CHEST DRAINAGE TUBES. BUE AND BLE EDEMA REMAINS, BLE LEG WRAP INTACT, PRAFOS. LUNGS WITH WHEEZES, LOOSE COUGH NO SPUTUM.
[2019-12-27 04:16] VITALS: BP 125/74
[2019-12-27 07:51] VITALS: BP 137/65
[2019-12-27 11:17] VITALS: BP 118/66
[2019-12-27 19:34] VITALS: BP 123/66
--- NOTE | 2019-12-28 02:48 | NUR ---
PATIENT ASSESSED AND IS ALERT X 4. SKIN WARM AND DRY. RESSP EVEN AND UNLABORED. ON VENT AND REQUIRES TO BE SUCTIONED PRN. HAS A FALAT AFFECT MOST OF THE SHIFT. NO SKIN ISSUES EXCEPT BUTTOCK SLIGHTLY REDDENED. CREAM APPLIED EACH TIME WE TURNED PATIENT. PEG TUBE INTACT WITH NEPRO AT 45 ML /HPOUR. ALSO FLUSHES OF H20 ARE 150 CCC Q 4 HOURS AND PRN. HAS GENERAL EDEMA NOTED. IV SITE FLUSHES WELL. ALL MEDS CRUSHED AND PLACED IN PEG TUBE WITH H20 FLUSHES. PROFO BOOTS APPLIED ON. LUNGS COURSE IN UPPER LOBES AND DISM LOWER LOBES. HAS 2 CHEST TUBES RIGHT HAS SEROUS ANGUIOUS RETURN ADN LEFT HAS YELLOWISH RETURN. ALSO HAS SOME 2+ EDEMA NOTED TO LOWER EXTRMITIES. DENIES ANY PAIN. REFUSES TO TURN AT TIMES.IS IN ISOLATION FOR PHEUDOMONUS.TELE- SHOWS A-FIB. DENIES CHEST PAIN. CONT PLAN OF CARE.VS STABLE.
[2019-12-28 04:58] VITALS: BP 125/69
[2019-12-28 07:12] VITALS: BP 122/63
[2019-12-28 11:20] VITALS: BP 130/75
[2019-12-28 15:47] VITALS: BP 109/65
[2019-12-28 19:55] VITALS: BP 113/68
--- NOTE | 2019-12-28 21:15 | NUR ---
PT RESTING IN BED, ASLEEP AT BEGINNING OF SHIFT. AWAKENED AFTER RT TREATMENT AND WATCHING TV, SMILING MOUTHING WORKDS TO COMMUNICATE. LUNGS WITH WHEEZES, VENT TRACH INTACT, BILAT CHEST TUBE INTACT TO SUCTION, NOT COUGHING AT THIS TIME. NOT REQUESTING SUCTION AT THIS TIME. PEG TUBE FEEDING CONTINUES, NO RESIDUAL. MUÑOZ TO DD. BLE EDEMA AND BILAT HAND EDEMA REMAIN, PT IS OBESE. PT ASSISTS WITH REPOSITIONING.
[2019-12-29 05:25] VITALS: BP 115/59
[2019-12-29 07:36] VITALS: BP 117/62
[2019-12-29 11:14] LABS: CALCIUM 8.5 mg/dL (8.5-10.1); POTASSIUM 4.5 mmol/L (3.5-5.1)
[2019-12-29 12:06] VITALS: BP 107/62
[2019-12-29 15:55] VITALS: BP 120/76
--- NOTE | 2019-12-29 16:02 | NUR ---
JOSE ALFREDO reviewed chart and spoke with nursing and attending physician. Discharge back to [facility] is anticipated for tomorrow. JOSE ALFREDO faxed clinical updates to [facility] for review. JOSE ALFREDO notified [facility] liaison, to request authorization from the [place]. JOSE ALFREDO spoke with pt's son, Ever, via phone to provide update. Ever requests to speak with attending physician prior to discharge orders being written. Pt's son had questions regarding the plan of care and possible additional cardiac procedures. JOSE ALFREDO is following to assist as needed with discharge planning.
[2019-12-29 19:31] VITALS: BP 120/66
--- NOTE | 2019-12-29 19:33 | NUR ---
pt is continuing IV abx and ventilator ( A/C mode, O2 30%), pt's vs and o2sat are stable, pt is tolerated tube feeding at 45ml/hr, pt's both side chest tube are working well , pt denies pain and sob .pt is cooperatived and follow all commands.
[2019-12-30 03:54] VITALS: BP 120/67
[2019-12-30 07:28] VITALS: BP 110/65
[2019-12-30 07:33] LABS: CALCIUM 8.6 mg/dL (8.5-10.1); POTASSIUM 4.5 mmol/L (3.5-5.1)
--- NOTE | 2019-12-30 07:48 | NUR ---
patient is progressing in his care plan. vital signs stable with patient having no complaints of pain or nausea. mostly oriented, patient is able to communicate through mouthing words. breathing stable on ventilator as evidenced by assessment and continuous saturation monitor. patient turned frequently with wound care provided. tube feed tolerated well with no residual. continue plan of care.
[2019-12-30 12:00] VITALS: BP 114/66
--- NOTE | 2019-12-30 15:28 | NUR ---
JOSE ALFREDO reviewed chart and spoke with nursing and attending physician. Pt is progressing towards goals for discharge. SW updated [facility] liaison. Plan is for pt to go to [facility] when medically stable. SW provided pt's son's contact info for an update, per pt's son's request. JOSE ALFREDO spoke with pt's son via phone to notify of pt not discharging today. Pt's son to call attending physician's office. [facility] is able to accept pt when he is medically stable. JOSE ALFREDO is following to assist as needed with discharge planning.
--- NOTE | 2019-12-30 15:42 | NUR ---
Assumed care approx. 0700 this AM. Pt awake and alert asking questions about plan of care. Rate controlled on cardiac monitor technician. Wound care completed per orders. Right and left chest tubes intact-both noted to have continued output. Son at bedside to visit. Questions and concerns the son had addressed with Dr. Glover and RN at bedside this afternoon. Pt progressing toward goals and hopeful for discharge tomorrow.
[2019-12-30 15:45] VITALS: BP 125/92
[2019-12-30 19:42] VITALS: BP 124/63
[2019-12-31 00:24] VITALS: BP 126/66
[2019-12-31 04:47] VITALS: BP 139/72
--- NOTE | 2019-12-31 06:16 | NUR ---
Pt is alert responds appropriately by mouthing words. Follows commands. Soa noted while turning or HOB down. Lungs slightly coase with light sputum noted. Chest tubes intact to right and left with minimal serous drainage noted, CCCC/o pain x1 to right lower abdomen. Medicated with hydrocodone . Pt went to sleep. No s/s distress resting quietly now. Low grade temp this am.
[2019-12-31 06:35] LABS: CALCIUM 9.1 mg/dL (8.5-10.1); CREATININE 1.1 mg/dL (0.7-1.3); POTASSIUM 4.4 mmol/L (3.5-5.1)
[2019-12-31 11:11] VITALS: BP 120/65
--- NOTE | 2019-12-31 11:46 | NUR ---
Pt does not need to be on a renal formuala. Nepro is lower protein and lower K+. Pt requires daily KCL supplementation and has high protein needs for wounds. REC CHANGE FORMULA TO JEVITY 1.5 AT 55ML/HR AND ADD 3 PACKETS BENEPROTEIN TOTAL PER DAY INTO WATER FLUSHES.
--- NOTE | 2019-12-31 17:53 | NUR ---
[place] [id number], pt alert and oirented X4, on a ventilator. bilateral chest tube intact, off to suction. Assemement completed per order. wound dressing change completed per order. pt turn q2. Call light in reach, HOB >30, bed alarm on and bed at lowest level. pt denies any other needs.
[2019-12-31 20:15] VITALS: BP 126/74
[2020-01-01 04:10] VITALS: BP 147/52
[2020-01-01 06:34] LABS: CALCIUM 9.1 mg/dL (8.5-10.1); CREATININE 1.1 mg/dL (0.7-1.3); POTASSIUM 4.2 mmol/L (3.5-5.1)
[2020-01-01 08:10] VITALS: BP 114/65
[2020-01-01 11:33] VITALS: BP 126/60
--- NOTE | 2020-01-01 15:29 | NUR ---
JOSE ALFREDO reviewed chart and spoke with nursing and attending physician. Pt is progressing towards goals for discharge back to [facility]. Discharge is anticipated for tomorrow. SW updated [facility]. data processing systems project planner faxed clinical updates to [facility] for review. JOSE ALFREDO spoke with pt's son, Ever, via phone to provide update. Attending physician did speak with pt's on earlier today. Pt's son is agreeable with discharge tomorrow to [facility]. [facility] from the [facility]. Pt will need ambulance transportation. JOSE ALFREDO is following to assist as needed with discharge planning.
[2020-01-01 16:10] VITALS: BP 132/68
--- NOTE | 2020-01-01 17:11 | NUR ---
PT CARE ASSUMED AT 0700, PT ALERT AND ORIENTED X4, DENIES PAIN. PT VENT IN PLACE, OXYGEN SATURATION WITHIN NORMAL LIMIT, MUÑOZ CATHETER IN PLACE AND DRAINING APPROPRIATELY. ASSESSMNET DONE PER ORDER. CALL LIGHT IN REACH, BED AT LOWEST LEVEL WITH ALARM ON. WILL CONTINUE TO MONITOR.
[2020-01-01 19:24] VITALS: BP 110/65
[2020-01-02 03:23] LABS: HEMATOCRIT 26.4 % (42.0-52.0); HEMOGLOBIN 8.2 gm/dL (14.0-18.0); MCHC 31.1 g/dL (28.0-37.0); MCV 96.5 fL (80.0-100.0); RBC 2.74 mil/uL (4.50-6.00); RDW 17.7 % (10.5-14.5)
[2020-01-02 03:35] LABS: CALCIUM 9.2 mg/dL (8.5-10.1); CREATININE 1.2 mg/dL (0.7-1.3); POTASSIUM 4.3 mmol/L (3.5-5.1)
[2020-01-02 04:44] VITALS: BP 146/76
[2020-01-02 08:00] VITALS: BP 128/67
[2020-01-02] MEDS ORDERED: IPRAT-ALBUT 0.5-3 ML INH (11:33)
[2020-01-02] MEDS ORDERED: FERROUS SU15 MG/1 ML PER TUBE (11:34)
[2020-01-02] MEDS ORDERED: CARDIZEM30 MG PER TUBE (11:36)
[2020-01-02] MEDS ORDERED: DIGOXIN250 MCG PER TUBE (11:36)
[2020-01-02] MEDS ORDERED: XARELTO20 MG PO (11:36)
[2020-01-02] MEDS ORDERED: POTASSIUM CHLO20 MEQ PER TUBE (11:37)
[2020-01-02] MEDS ORDERED: SYNTHROID100 MC1 PER TUBE (11:37)
[2020-01-02] MEDS ORDERED: FUROSEMIDE20 MG/2 ML IV PUSH (11:37)
[2020-01-02] MEDS ORDERED: VITAMIN D325 MCG PO (11:38)
[2020-01-02 12:51] VITALS: BP 117/56
[2020-01-02 16:12] VITALS: BP 118/59
--- NOTE | 2020-01-02 16:34 | NUR ---
DISCHARGE NOTE: SW reviewed chart and spoke with nursing and attending physician. Pt is medically stable for discharge to [facility] today. Clinical updates and discharge orders/summary faxed to [facility] for review. Request for 1800 transportation from [facility]. SW arranged for ambulance transportation at 1800 per [facility]. Attending physician and [facility] liaison both spoke with pt's son to provide update and notify of discharge. SW spoke with pt's son also, to confirm plan. Pt's son is agreeable with discharge. Chart copy requested. Nursing to call report. No additional SW needs identified at this time, but is available to assist should needs arise.
== END 2020-01-02 18:58 | DRG 207 ==
LOC: 3W 21:25
PROVIDERS: Internal Medicine Cardiovascular Disease; Internal Medicine Pulmonary Disease; Nurse Practitioner; Nurse Practitioner Adult Health; ADMIT Internal Medicine Geriatric Medicine
DX: J18.9 Pneumonia, unspecified organism (principal); J96.20 Acute and chronic respiratory failure, unspecified whether with hypoxia or hypercapnia; L89.153 Pressure ulcer of sacral region, stage 3; L89.154 Pressure ulcer of sacral region, stage 4; L89.303 Pressure ulcer of unspecified buttock, stage 3; I50.43 Acute on chronic combined systolic (congestive) and diastolic (congestive) heart failure; J86.9 Pyothorax without fistula; G72.81 Critical illness myopathy; I48.19 Other persistent atrial fibrillation; E87.1 Hypo-osmolality and hyponatremia; D68.59 Other primary thrombophilia; G93.40 Encephalopathy, unspecified; J91.8 Pleural effusion in other conditions classified elsewhere; I13.0 Hypertensive heart and chronic kidney disease with heart failure and stage 1 through stage 4 chronic kidney disease, or unspecified chronic kidney disease; Z99.11 Dependence on respirator [ventilator] status; I69.351 Hemiplegia and hemiparesis following cerebral infarction affecting right dominant side; I25.10 Atherosclerotic heart disease of native coronary artery without angina pectoris; D63.8 Anemia in other chronic diseases classified elsewhere; I05.9 Rheumatic mitral valve disease, unspecified; E78.00 Pure hypercholesterolemia, unspecified; N18.9 Chronic kidney disease, unspecified; E11.22 Type 2 diabetes mellitus with diabetic chronic kidney disease; L89.622 Pressure ulcer of left heel, stage 2; E87.6 Hypokalemia; E03.9 Hypothyroidism, unspecified; Z79.82 Long term (current) use of aspirin; Z79.01 Long term (current) use of anticoagulants; Z88.8 Allergy status to other drugs, medicaments and biological substances; Z95.1 Presence of aortocoronary bypass graft; Z79.899 Other long term (current) drug therapy
CPT/HCPCS: 10779; 10879